=== PATIENT | male | born 2005 | race Caucasian/White ===

== ENCOUNTER 2024-04-19 08:26 | Emergency (ER) | payer BC, SELFPAY ==
[2024-04-19 08:27] VITALS: BP 142/87; PULSE 67; RESP 22; TEMP 37.7; O2SAT 100
--- NOTE | 2024-04-19 08:50 | EDS_ITS ---
HPI History of Present Illness Chief Complaint: Nausea/Vomiting Informant: patient and spouse/S.O. Narrative Narrative: 18-year-old male presenting to the emergency room with nausea vomiting. Patient states about every third day he wakes in the morning with vomiting. States that this morning was most severe at around 0630 hrs. He states he cannot stop retching. No diarrhea but feels like he may have some. No known bad food or recent travel. No fevers. Patient is a daily cannabis user. No recent antibiotics. No known medical problems. He does not feel he is distended or bloated. PFSH PFSH Home Medications ?Medication ?Instructions ?Recorded ?Last Taken ?Type ondansetron 4 mg disintegrating 4 mg PO Q6H PRN PRN Nausea #10 tabs 04/19/24 Unknown Rx tablet Allergy/AdvReac Type Severity Reaction Status Date / Time Penicillins (PCN) Allergy Hives Verified 04/19/24 08:28 Social History (Updated 04/19/24 @ 08:[address] Harsh Chong, DO) Smoking Status: Current every day smoker tobacco type: cigarettes alcohol intake: current alcohol intake frequency: 0-2 drinks per day substance use type: marijuana ROS ROS ED Constitutional Constitutional ED: Reports sweats; Denies chills, fever(s) or weight loss Eyes Eyes: Denies change in vision or diplopia ENT ENT ED: Denies ear pain, rhinorrhea or sore throat Cardiovascular Cardiovascular: Denies chest pain, orthopnea, palpitations or racing heartbeat Respiratory/Chest Respiratory/Chest: Denies cough, dyspnea or orthopnea Gastrointestinal Gastrointestinal: Reports nausea and vomiting; Denies abdominal pain or diarrhea Genitourinary Genitourinary ED: Denies dysuria, hematuria or urinary frequency Musculoskeletal Musculoskeletal: Denies arthralgias, back pain, myalgias or neck pain Integumentary Denies abscess or rash Neurologic Neurologic: Denies headache(s) or weakness Psychiatric Psychiatric: Denies anxiety, depression, suicidal ideation or suicidal thoughts Endocrine Endocrinology: Denies polydipsia, polyphagia or polyuria Allergic/Immunologic Allergic/Immunologic ED: Denies mouth swelling, tongue swelling or urticaria EXAM Physical Exam Narrative Exam Narrative: Patient retching while laying in the bed Const Vital Signs: 04/19/24 08:27 04/19/24 10:27 04/19/24 10:38 Temperature 99.8 F H 97.9 F Temperature Source Temporal Pulse Rate 67 75 72 Respiratory Rate 22 H 16 18 Blood Pressure 142/87 H 140/74 H 138/68 H Blood Pressure Mean 105 96 91 Pulse Ox 100 99 97 Oxygen Delivery Method Room Air Room Air Positive well nourished and well developed General Appearance ED: well developed HEENT Reports normocephalic, head/scalp atraumatic and moist mucous membranes Eyes PERRL and EOMs intact bilaterally Neck no lymphadenopathy, supple and no JVD Resp normal respiratory effort and clear to auscultation bilaterally Cardio regular rate, regular rhythm and no murmurs GI normal to inspection, nondistended, normoactive bowel sounds and non-tender Palpation: soft Back/Spine no CVA tenderness and normal ROM Extremity normal to inspection General Extremety ED: Negative for edema General Extremity: Negative for edema Neuro oriented x3 and CN's II-XII intact bilaterally Sensorium / Orientation: alert Motor Exam: strength 5/5 throughout Psych mental status grossly normal Mood & Affect: Negative for depressed or tearful Skin no rashes or lesions noted and no wounds Skin Narrative: Diaphoretic MDM MDM MDM Narrative Medical decision making narrative: The differential diagnosis includes but not limited to pancreatitis gastroenteritis bowel obstruction biliary disease liver disease GERD cannabis hyperemesis syndrome medication reaction. Patient received IV fluids Protonix Zofran and Ativan. He had no relief of symptoms. He received Thorazine as well as Benadryl. Patient's blood back return for rather unremarkable. White count 9.5 with no left shift. BMP with a glucose of 117 normal LFTs lipase of 62. Patient is doing better on repeat examination. He is no longer diaphoretic vomiting seems to have subsided. I do wonder what degree cannabis hyperemesis syndrome might play in this case. I will write for Zofran. Would encourage him to establish primary care as he does not currently have 1. Would also refer to gastroenterology if symptoms persist History & Record Review Discussion w/independent historian: Patient Lab Data Attestation: I reviewed the patient's lab results. Labs: Laboratory Results - last 24 hr 04/19/24 08:45 WBC 9.5 RBC 5.66 Hgb 16.7 H Hct 48.4 MCV 85.5 MCH 29.5 MCHC 34.5 RDW Std Deviation 36.4 RDW Coeff of Nicole 11.8 Plt Count 239 MPV 12.4 H Immature Gran % (Auto) 0.300 Neut % (Auto) 69.7 Lymph % (Auto) 23.1 [place] % (Auto) 5.5 Eos % (Auto) 0.7 Baso % (Auto) 0.7 Absolute Neuts (auto) 6.6 Absolute Lymphs (auto) 2.19 Nucleated RBC % 0 Sodium 138 Potassium 3.6 Chloride 107 Carbon Dioxide 22.0 Anion Gap 9 BUN 15 Creatinine 1.02 Est GFR (MDRD) Af Amer 119 Est GFR (MDRD) Non-Af 98 BUN/Creatinine Ratio 14.7 Glucose 117 H Calcium 9.6 Total Bilirubin 0.50 Direct Bilirubin 0.17 AST 19 ALT 25 Alkaline Phosphatase 68 Total Protein 8.5 H Albumin 4.7 Globulin 3.8 Lipase 62 Discharge Plan Triage Chief Complaint: Nausea/Vomiting ED Provider: Harsh Chong Dx/Rx/DC Orders Clinical Impression: Vomiting Instructions: ED Vomiting (Adult) Prescriptions: New ondansetron 4 mg tablet,disintegrating 4 mg PO Q6H PRN PRN (Reason: Nausea) Qty: 10 0RF Primary Care Provider: Care Physician,No Primary Referrals: Balwinder Naranjo MD [Med Staff - Active Staff] - As Needed Friend,DO Jose [Med Staff - Active Staff] - As soon as possible (for GI Cocktail) Care Physician,No Primary [Primary Care Provider] - Print Language: [place] Disposition Disposition: Home, Self Care Discharge Date/Time: 04/19/24 10:39
[2024-04-19] MEDS: Ondansetron 4 MG/2 ML Vial IV (08:59)
[2024-04-19] MEDS: 0.9% Normal Saline (1000mL) 1,000 ML 1000 ML IV (08:59)
[2024-04-19] MEDS: LORazepam 2 MG/ML Syringe 1 MG IV (08:59)
[2024-04-19 09:08] LABS: Absolute Lymphocyte Count 2.19 X10^3/uL (0.83-4.51); Absolute Neutrophil Count 6.6 X10^3/uL (2.0-7.7); Basophil# 0.07 X10^3/uL; Basophil% 0.7 % (0-1); Eosinophil# 0.07 X10^3/uL; Eosinophils% 0.7 % (0-5); Hematocrit 48.4 % (40-54); Hemoglobin 16.7 g/dL (13.0-16.5); Lymphocyte # 2.19 X10^3/ul (0.83-4.51); Lymphocyte % 23.1 % (19-41); Mean Corp Hgb Conc 34.5 g/dL (32-36); Mean Corpuscular Hgb 29.5 pg (27.0-32.0); Mean Corpuscular Volume 85.5 fL (80-94); Mean Platelet Vol. 12.4 fl (6.2-12.0); Monocyte# 0.52 X10^3/uL; Monocyte% 5.5 % (0-10); NRBC Flagged by Analyzer 0 % (0-5); Neutrophil # 6.62 X10^3/uL (2.7-7.7); Neutrophil % 69.7 % (47-70); Platelet Count 239 K/mm3 (150-450); RBC Distribution Width CV 11.8 % (11.6-14.6); RBC Distribution Width SD 36.4 fl (35.1-43.9); Red Blood Count 5.66 M/mm3 (4.6-6.2); White Blood Count 9.5 K/mm3 (4.4-11.0)
[2024-04-19] MEDS: Pantoprazole Sodium 40 MG in 0.9% Normal Saline (100mL MB+) 100 ML 330 MG IV (09:19)
[2024-04-19 09:22] LABS: AST(SGOT) 19 U/L (15-37); Alanine Aminotransfer ALT/SGPT 25 U/L (16-61); Albumin, Serum 4.7 g/dL (3.2-5.0); Alkaline Phosphatase 68 U/L (45-117); Anion Gap 9 (5-15); BUN 15 mg/dL (7-18); BUN/Creat Ratio 14.7 RATIO (10-20); Bilirubin, Direct 0.17 mg/dL (0.00-0.30); Calcium,Total 9.6 mg/dL (8.5-10.1); Chloride 107 mmol/L (98-107); Creatinine, Serum 1.02 mg/dL (0.70-1.30); EST Glomerular Filtration Rate 98 mL/min (>60); Est Glom Filt Rate - Afr Amer 119 mL/min (>60); Globulin 3.8 g/dL (2.2-4.2); Glucose 117 mg/dL (74-106); Lipase 62 U/L (13-75); Potassium 3.6 mmol/L (3.5-5.1); Protein, Total 8.5 g/dL (6.4-8.2); Sodium Level 138 mmol/L (136-145)
[2024-04-19 10:27] VITALS: BP 140/74; PULSE 75; RESP 16; O2SAT 99; BMI 18.5
[2024-04-19] MEDS: DiphenhydrAMINE 50 MG, ChlorproMAZINE IM 50 MG in 0.9% Normal Saline (250mL Bag) 250 ML 253 MG IV (10:35)
[2024-04-19 10:38] VITALS: BP 138/68; PULSE 72; RESP 18; TEMP 36.6; O2SAT 97
== END 2024-04-19 14:22 | disposition home or self-care (01) ==
PROVIDERS: Emergency Provider Emergency Medicine; Visit Provider Emergency Medicine
DX: R11.2 Nausea with vomiting, unspecified (principal); F17.200 Nicotine dependence, unspecified, uncomplicated; F12.90 Cannabis use, unspecified, uncomplicated
CPT/HCPCS: 80048; 80076; 83690; 85025; 96365; 96366; 96367; 96375; 99283; J7030; J7050; A4216; J2405